=== PATIENT | female | born 2000 | race African-American/Black ===

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

== ENCOUNTER 2019-07-19 22:47 | Inpatient (IN) | payer OTHER ==
[2019-07-19 23:23] VITALS: BMI 31.7
[2019-07-20] LABS: Amnisure Test No Membranes Rupture (No Rupture)
[2019-07-20 00:01] LABS: Amnisure Internal Control QC ACCEPTABLE (ACCEPTABLE)
[2019-07-20 01:13] LABS: #Basophils 0.1 thou/uL (0.0-0.2); #Eosinphils 0.1 thou/uL (0.0-0.7); #Lymphocytes 3.4 thou/uL (1.20-3.40); #Monocytes 0.8 thou/uL (0.11-0.59); #Neutrophils 8.9 thou/uL (1.40-6.50); %Basophils 0.8 % (0.0-1.0); %Eosinophils 0.5 % (0.0-10.0); %Lymphocytes 25.8 % (28.0-48.0); %Monocytes 6.3 % (0.0-4.0); %Neutrophils 66.6 % (31.0-61.0); Hemoglobin 11.4 g/dL (12.0-16.0); Mean Corpuscular HGB CONC 34.1 g/dL (32.0-36.0); Mean Corpuscular Hemoglobin 28.3 pg (25.0-35.0); Mean Corpuscular Volume 82.9 fL (78.0-98.0); Mean Platelet Volume 8.7 fL (7.4-10.4); Platelet Count 242 thou/uL (130-400); RBC Distribution Width 12.7 % (11.5-14.5); Red Blood Cell (RBC) Count 4.02 mill/uL (4.00-5.20); White Blood Cell (WBC) Count 13.4 thou/uL (4.8-10.8)
[2019-07-20 01:25] LABS: Bilirubin Negative (Negative); Blood, Urine Negative (Negative); Clarity Turbid (Clear); Glucose, Urine (Dipstick) Normal (Negative); Leukocyte 500 Leu/uL (Negative); Nitrite 2+ (Negative); Protein, Urine (Dipstick) 10 mg/dL (Neg-Trace); Squamous Epithelial 0-3 HPF (0-3); Urobilinogen Normal mg/dL (Less than 2); WBC/HPF 21-50 HPF (0-3)
[2019-07-20 01:26] LABS: Bacteria/HPF 1+ HPF (None Seen)
[2019-07-20 01:33] LABS: ALT (SGPT) 7 U/L (8-55); AST (SGOT) 14 U/L (5-30); Albumin 3.3 g/dL (3.5-5.0); Alkaline Phosphatase 224 U/L (40-150); Anion Gap 11 mmol/L (10-20); BUN (Urea Nitrogen) 8 mg/dL (8.4-21.0); Bilirubin, Total 0.3 mg/dL (0.2-1.2); Calc. Creatinine Clearance 130 mL/min (70-130); Calcium 9.9 mg/dL (7.8-10.44); Carbon Dioxide 21 mmol/L (22-29); Chloride 107 mmol/L (98-107); Estimated GFR-MDRD Greater than 90; Globulin 3.7 g/dL (2.4-3.5); Glucose 80 mg/dL (70-105); Potassium 3.8 mmol/L (3.5-5.1); Sodium 135 mmol/L (136-145)
[2019-07-20 01:38] LABS: Creatinine, Urine 114.58 mg/dL (47-110)
[2019-07-20] MEDS ORDERED: Promethazine HCl 25 MG/ML VIAL IM PRN (02:42)
[2019-07-20] MEDS ORDERED: Lidocaine 1% (PF) 30 ML VIAL SC PRN (02:42)
[2019-07-20] MEDS ORDERED: NS / Oxytocin 40 units/1000ml 1,000 ML IV PRN (02:42)
[2019-07-20] MEDS ORDERED: hydrALAZINE 20 MG/ML VIAL SLOW IVP PRN (02:42)
[2019-07-20] MEDS ORDERED: Ibuprofen 800 MG TAB PO PRN (02:42)
[2019-07-20] MEDS ORDERED: Ondansetron PF 4 MG/2 ML Vial IVP PRN (02:42)
--- NOTE | 2019-07-20 02:57 | PDOC.LDHP ---
Labor and Delivery H&P Chief complaint: loss of fluid HPI: 18 yo BF presents c/o ?LOF this PM with associated UCs. Current gestational age (weeks): 39 Due date: 07/27/19 Dating criteria: last menstrual period Grav: 1 Para: 0 Current complications: none Abnormal US findings: No Current medications: pre-stefania vitamins Previous surgical history: none Allergies/Adverse Reactions: Allergies Allergy/AdvReac Type Severity Reaction Status Date / Time No Known Allergies Allergy Unverified 07/19/19 23:25 Social history: none - Physical Exam Abnormal vital signs: 154/98, 146/94 General: NAD Lungs: nonlabored breathing Abdomen: gravid Extremeties: trace edema FHT: category 1 [place] contractions every: irregular - Vaginal Exam cm dilated: 1 Effacement: 50% Station: -1 - OB Labs GBS: positive - Assessment L&D Assessment: medically indicated induction (BPs c/w gestational HTN, labs are WNL) - Plan Plan: admit to L&D (d/w Dr. Meehan- will proceed with induction), cervical ripening, labor augmentation if indicated, GBS antibiotic prophylaxis, informed consent obtained, anesthesia consult for pain management
[2019-07-20] MEDS ORDERED: Penicillin G Potassium 5 MILL.UNITS in Sodium Chloride 0.9% 100 ML IVPB SCH (03:00)
[2019-07-20 03:49] LABS: Hemoglobin 11.3 g/dL (12.0-16.0); Mean Corpuscular HGB CONC 34.4 g/dL (32.0-36.0); Mean Corpuscular Hemoglobin 28.8 pg (25.0-35.0); Mean Corpuscular Volume 83.9 fL (78.0-98.0); Mean Platelet Volume 9.7 fL (7.4-10.4); Platelet Count 229 thou/uL (130-400); RBC Distribution Width 12.9 % (11.5-14.5); Red Blood Cell (RBC) Count 3.91 mill/uL (4.00-5.20); White Blood Cell (WBC) Count 12.7 thou/uL (4.8-10.8)
[2019-07-20] MEDS: Lactated Ringer's 1,000 ML IV SCH ×2 (03:49→20:48)
[2019-07-20] MEDS: Misoprostol 100 MCG TAB VAG SCH ×3 (03:53→10:21)
[2019-07-20 04:33] LABS: HBSAg Index 0.13 S/CO (0-0.99); Hep B Surf Ag Non-Reactive S/CO (NonReactive)
[2019-07-20 05:01] LABS: Syphilis Antibody Nonreactive (Nonreactive); Syphilis Antibody Index 0.06 S/CO (<1.00 Non-Reactive)
[2019-07-20 05:48] LABS: Amphetamine Not Detected (NotDetected); Barbiturates Screen Not Detected (NotDetected); Benzodiazepine Screen Not Detected (NotDetected); Cocaine Metabolite Screen Not Detected (NotDetected); Medtox Reader # READER 1; Methadone Not Detected (NotDetected); Methamphetamine Not Detected (NotDetected); Opiate Screen Not Detected (NotDetected); Oxycodone Screen Not Detected (NotDetected); Phencyclidine (PCP) Not Detected (NotDetected); THC/Cannabinoid Screen Not Detected (NotDetected); Tricyclic Screen Not Detected (NotDetected)
[2019-07-20 05:49] LABS: Medtox Control Line Valid? VALID (VALID)
[2019-07-20] MEDS: Penicillin G 2.5 MILL.units 2.5 MILL.UNITS in Premix Bag 1 BAG IVPB SCH ×5 (07:02→20:49)
[2019-07-20] MEDS: Butorphanol Tartrate 1 MG/ML VIAL SLOW IVP PRN ×3 (11:17→20:06)
[2019-07-20] MEDS ORDERED: Lidocaine 2% PF 5 ML VIAL ONE (18:02)
[2019-07-20] MEDS ORDERED: Ondansetron PF 4 MG/2 ML Vial ONE (18:02)
[2019-07-20] MEDS ORDERED: Fentanyl 4 mcg/Bup 0.1% Cadd 100 ML ONE (20:28)
[2019-07-20] MEDS ORDERED: Lidocaine 1.5%/Epinephrine 1:200,000 5 ML AMPUL IJ ONE (20:29)
[2019-07-21] MEDS ORDERED: MORPHINE 5 MG/10 ML PF VIAL ONE (00:42)
[2019-07-21] MEDS ORDERED: Lidocaine 2% MPF 10 ML AMP (For Epidural Use) ONE (00:43)
[2019-07-21] MEDS ORDERED: Ondansetron PF 4 MG/2 ML Vial ONE (00:43)
[2019-07-21] MEDS ORDERED: Oxytocin 10 UNITS/ML VIAL ONE (00:43)
[2019-07-21] MEDS ORDERED: Ondansetron HCl/PF 4 MG/2 ML Vial IVP PRN (00:59)
[2019-07-21] MEDS ORDERED: Promethazine HCl 25 MG SUPP PR PRN (00:59)
[2019-07-21] MEDS ORDERED: diphenhydrAMINE 50 MG/ML VIAL IVP PRN (00:59)
[2019-07-21] MEDS ORDERED: Ondansetron PF 4 MG/2 ML Vial IVP PRN (00:59)
[2019-07-21] MEDS ORDERED: Naloxone HCl 0.4 mg/ml Vial IV PRN (00:59)
[2019-07-21] MEDS ORDERED: HYDROmorphone 2 MG/ML VIAL SLOW IVP PRN (00:59)
[2019-07-21] MEDS ORDERED: Ketorolac Tromethamine 30 MG/ML VIAL IVP PRN (00:59)
[2019-07-21] MEDS ORDERED: Meperidine HCl/PF 25 MG/ML VIAL SLOW IVP PRN (00:59)
[2019-07-21] MEDS ORDERED: Naloxone HCl 0.4 mg/ml Vial IVP PRN ×2 (00:59)
[2019-07-21] MEDS ORDERED: L&D-Morphine 4 MG/ML VIAL SLOW IVP PRN (00:59)
[2019-07-21] MEDS ORDERED: Promethazine HCl 25 MG/ML VIAL IM PRN (00:59)
[2019-07-21] MEDS ORDERED: Ketorolac Tromethamine 30 MG/ML VIAL IVP SCH (01:00)
[2019-07-21] MEDS ORDERED: Communication Order-Pharmacy FS SCH (01:00)
[2019-07-21] MEDS ORDERED: Lanolin Ointment 7 GM TUBE TOP PRN (01:56)
[2019-07-21] MEDS ORDERED: Bisacodyl 10 MG SUPP PR PRN (01:56)
[2019-07-21] MEDS ORDERED: Misoprostol 200 MCG TAB PR PRN (01:56)
[2019-07-21] MEDS ORDERED: hydrALAZINE 20 MG/ML VIAL SLOW IVP PRN (01:56)
[2019-07-21] MEDS ORDERED: Adacel (T-DAP) 0.5 ML SYRINGE IM ONE (01:56)
[2019-07-21] MEDS ORDERED: Zolpidem Tartrate 5 MG TAB PO PRN (01:56)
--- NOTE | 2019-07-21 01:59 | PDOC.OPDEL ---
OB Operative/Delivery Note Delivery Dr/Surgeon: Zoran Assist: Kiki Pre-Delivery Diagnosis: arrest of dilation, medically indicated induction, non- reassuring tracing Procedure/Post Delivery Dx: primary low transverse CS Weeks gestation: 39 Anesthesia: epidural - Findings A Sex: male Weight: 6 lb 15 oz - 1 min: 8 - 5 min: 8 - Additional Findings/Plan Placenta delivered: manual removal findings: low transverse hysterotomy without extension
[2019-07-21] MEDS: NS w/ Oxytocin 10 units 500 ML IV SCH ×3 (02:25→19:31)
[2019-07-21] MEDS: Misoprostol 100 MCG TAB VAG SCH ×5 (02:26→07:45)
[2019-07-21] MEDS ORDERED: Meperidine HCl/PF 25 MG/ML VIAL ONE (02:35)
--- NOTE | 2019-07-21 02:40 | OP ---
DATE OF PROCEDURE: 07/20/2019 The patient underwent a primary for non-reassuring heart tones and arrest of labor in the setting of PIH. For complete details, please refer to Dr. Suzanne Meehan's operative note. I functioned as first press operator. Job ID: [id number]
[2019-07-21] MEDS ORDERED: NIFEdipine XL 30 MG TAB PO SCH (04:45)
[2019-07-21] MEDS: Lactated Ringer's 1,000 ML IV SCH ×4 (04:46→19:30)
[2019-07-21] MEDS: Penicillin G 2.5 MILL.units 2.5 MILL.UNITS in Premix Bag 1 BAG IVPB SCH ×3 (04:48→07:45)
--- NOTE | 2019-07-21 05:37 | OP ---
DATE OF PROCEDURE: 07/21/2019 PREOPERATIVE DIAGNOSES: 1. 18-year-old female, G1, P0, at 39 plus weeks gestation. 2. Mild gestational hypertension, status post Pitocin induction. 3. Failure to progress past 3 cm. 4. Nonreassuring heart rate tracing right approximately 5 minutes prior to delivery. POSTOPERATIVE DIAGNOSES: 1. 18-year-old female, G1, P0, at 39 plus weeks gestation. 2. Mild gestational hypertension, status post Pitocin induction. 3. Failure to progress past 3 cm. 4. Nonreassuring heart rate tracing right approximately 5 minutes prior to delivery. PROCEDURES PERFORMED: Primary low-transverse section without extension. EVALUATOR TRANSFER STUDENTS SURGEON: Bennett Love MD. ANESTHESIA: Epidural. QUANTITATIVE BLOOD LOSS: 425 mL. FINDINGS: 1. Male infant, vertex presentation, weight 6 pounds 15 ounces, Apgars 8 and 8. 2. Normal-appearing fallopian tubes, uterus, ovaries. 3. Clear amniotic fluid noted. 4. Clear urine present in Arce catheter postprocedure. COUNTS: Lap, sponge counts were correct. DISPOSITION: Recovery room stable. DESCRIPTION OF PROCEDURE: The patient previously received informed consent in regard to surgery. She was taken back to the operating room emergently after the patient's heart rate tracing remained approximately in the 70s to 80s beats per minute after the patient had been lying on her back during the shaving process in her LDR room. Prior to this, heart rate tracing was reactive with occasional mild variable decelerations with good recovery. She was quickly placed on the table and anesthesia was at the bedside. Her epidural had been dosed adequately. She was prepped and then a Arce catheter was already in place. A Pfannenstiel incision was made in the abdomen and was quickly carried down to fascia. Fascia was nicked in midline. Fascial incision was extended bilaterally with curved Gage scissors. The rectus fascia was taken down superiorly and inferiorly and the rectus muscle bellies were divided in midline. Peritoneal cavity was entered. Bladder blade was placed. 2 cm hysterotomy incision was made above the vesicouterine peritoneal reflection and the baby was delivered in the vertex presentation. Mouth and nares were bulb suctioned on the abdomen. The cord was doubly clamped and cut and was handed to the pediatric team in attendance. Usual cord blood and ABG were obtained. Placenta was manually extracted. Uterus was externalized and was curetted of any remaining placental fragments, dry laparotomy sponge. Hysterotomy incision was closed with #1 Monocryl in a running locking fashion with good hemostasis confirmed. Uterus was then replaced back in the abdomen. The pelvis irrigated and suctioned. Hysterotomy incision again was noted to be hemostatic. Rectus muscle bellies were inspected and noted to be hemostatic prior to fascial closure. The fascia was closed with 0 PDS suture x2 in running continuous fashion. The subcutaneous tissue was irrigated, noted to be hemostatic prior to skin approximation with roni. The surgery was terminated. No anesthetic or surgical complications occurred. Job ID: [id number]
[2019-07-21] MEDS: Ferrous Sulfate 325 MG TAB PO SCH ×2 (07:45→18:16)
[2019-07-21] MEDS: Docusate Calcium (SURFAK) 240 MG CAP PO SCH ×2 (09:37→21:44)
[2019-07-21] MEDS: diphenhydrAMINE 25 MG CAP PO PRN ×2 (10:50→18:59)
[2019-07-21] MEDS ORDERED: Butorphanol Tartrate 1 MG/ML VIAL SLOW IVP PRN (13:00)
[2019-07-21] MEDS: Simethicone Chewable 80 MG TAB PO PRN (14:07)
[2019-07-21] MEDS: Prenatal Vitamin 1 TAB PO SCH (14:07)
[2019-07-21] MEDS: HYDROcodone/Acetaminophen 5/325 mg Tablet PO PRN ×2 (17:31→21:45)
[2019-07-21] MEDS: Ibuprofen 800 MG TAB PO SCH (21:45)
[2019-07-22] MEDS: HYDROcodone/Acetaminophen 5/325 mg Tablet PO PRN ×3 (03:54→18:10)
[2019-07-22] MEDS: Ibuprofen 800 MG TAB PO SCH ×3 (05:35→21:46)
[2019-07-22 06:53] LABS: Hemoglobin 9.7 g/dL (12.0-16.0); Mean Corpuscular HGB CONC 32.8 g/dL (32.0-36.0); Mean Corpuscular Volume 85.3 fL (78.0-98.0); Mean Platelet Volume 7.9 fL (7.4-10.4); Platelet Count 186 thou/uL (130-400); Red Blood Cell (RBC) Count 3.47 mill/uL (4.00-5.20); White Blood Cell (WBC) Count 17.9 thou/uL (4.8-10.8)
[2019-07-22] MEDS: Ferrous Sulfate 325 MG TAB PO SCH ×2 (09:47→18:11)
[2019-07-22] MEDS: Simethicone Chewable 80 MG TAB PO PRN ×2 (09:47→14:10)
[2019-07-22] MEDS: Docusate Calcium (SURFAK) 240 MG CAP PO SCH ×2 (09:47→21:46)
[2019-07-22] MEDS: Prenatal Vitamin 1 TAB PO SCH (09:47)
--- NOTE | 2019-07-22 12:29 | PDOC.PP ---
Post Progress Note Post Day #: 2 PO intake tolerated: yes Flatus: yes Ambulation: yes Vital Signs (12 hours) Temp Pulse Resp BP Pulse Ox 07/22/19 11:00 98.4 F 82 16 138/81 07/22/19 08:25 98.5 F 80 20 142/85 H 100 07/22/19 03:57 97.9 F 80 18 115/55 L 100 Weight Weight 185 lb Result Diagrams: 07/22/19 06:32 07/20/19 00:54 Additional Labs: Post Labs Blood Type O POSITIVE 07/20/19 04:42 Hep Bs Antigen Non-Reactive S/CO (NonReactive) 07/20/19 03:35 - Assessment/Plan Post op day 1-2. Blood pressures mild elevation...No severe readings. Plan to d/ c tomorrow.
[2019-07-22] MEDS: Lactated Ringer's 1,000 ML IV SCH ×2 (14:08→18:39)
[2019-07-23] MEDS: Lactated Ringer's 1,000 ML IV SCH ×4 (02:24→23:05)
[2019-07-23] MEDS: NS w/ Oxytocin 10 units 500 ML IV SCH (02:25)
[2019-07-23] MEDS: Ibuprofen 800 MG TAB PO SCH ×3 (05:10→21:49)
[2019-07-23] MEDS: HYDROcodone/Acetaminophen 5/325 mg Tablet PO PRN ×3 (05:15→19:05)
--- NOTE | 2019-07-23 08:40 | PDOC.PP ---
Post Progress Note Post Day #: 3 PO intake tolerated: yes Flatus: yes Ambulation: yes Vital Signs (12 hours) Temp Pulse Resp BP Pulse Ox 07/23/19 08:21 98.4 F 79 20 130/79 100 07/23/19 05:10 97.8 F 64 18 141/91 H 07/23/19 00:27 98.5 F 76 16 136/91 H Weight Weight 185 lb Result Diagrams: 07/22/19 06:32 07/20/19 00:54 Additional Labs: Post Labs Blood Type O POSITIVE 07/20/19 04:42 Hep Bs Antigen Non-Reactive S/CO (NonReactive) 07/20/19 03:35 - Assessment/Plan Post op day 3 from c/s. Blood pressures normalizing. Baby doing well. D/c home. follow up post op day 7 for staple removal and blood pressure check.
[2019-07-23] MEDS: Prenatal Vitamin 1 TAB PO SCH (09:11)
[2019-07-23] MEDS: Docusate Calcium (SURFAK) 240 MG CAP PO SCH ×2 (09:12→21:49)
[2019-07-23] MEDS: Ferrous Sulfate 325 MG TAB PO SCH ×2 (09:12→17:39)
--- NOTE | 2019-07-23 21:37 | PDOC.EVN ---
Event Note - Event Note Event Note: 2129: Called during another delivery that BP was 157/105 and then 177/87. Recheck 15 minutes later was 140/99 No sxs at this time. I sent Dr Dacosta to [facility] while I was in L&D We have debriefed. Follow BPs for now No meds at this time as may have been spurious
[2019-07-23] MEDS ORDERED: hydrALAZINE 20 MG/ML VIAL SLOW IVP PRN (22:17)
--- NOTE | 2019-07-23 22:19 | PDOC.EVN ---
Event Note - Event Note Event Note: Called by Dr Bhatt that BP was again 170s/90s. We will give IV hydralazine 10mg x 1 now, then transfer to L&D for MagSulfate. Check CBC, CMP
[2019-07-23] MEDS ORDERED: Sodium Chloride 0.9% 10 ML ONE ×2 (22:20→22:33)
[2019-07-23] MEDS ORDERED: hydrALAZINE 20 MG/ML VIAL SLOW IVP SCH (22:30)
[2019-07-23 22:41] LABS: #Basophils 0.1 thou/uL (0.0-0.2); #Eosinphils 0.2 thou/uL (0.0-0.7); #Lymphocytes 3.8 thou/uL (1.20-3.40); #Monocytes 0.8 thou/uL (0.11-0.59); #Neutrophils 9.6 thou/uL (1.40-6.50); %Basophils 0.6 % (0.0-1.0); %Eosinophils 1.6 % (0.0-10.0); %Lymphocytes 26.4 % (28.0-48.0); %Monocytes 5.5 % (0.0-4.0); %Neutrophils 65.9 % (31.0-61.0); Hemoglobin 10.2 g/dL (12.0-16.0); Mean Corpuscular HGB CONC 33.7 g/dL (32.0-36.0); Mean Corpuscular Hemoglobin 28.6 pg (25.0-35.0); Mean Corpuscular Volume 84.7 fL (78.0-98.0); Mean Platelet Volume 7.9 fL (7.4-10.4); Platelet Count 262 thou/uL (130-400); Red Blood Cell (RBC) Count 3.56 mill/uL (4.00-5.20); White Blood Cell (WBC) Count 14.5 thou/uL (4.8-10.8)
[2019-07-23] MEDS ORDERED: Magnesium Sulfate 20 gm/500 ml 20 GM/500 ML BAG ONE (22:51)
[2019-07-23 23:01] LABS: ALT (SGPT) 10 U/L (8-55); AST (SGOT) 17 U/L (5-30); Albumin 2.9 g/dL (3.5-5.0); Alkaline Phosphatase 160 U/L (40-150); Anion Gap 12 mmol/L (10-20); BUN (Urea Nitrogen) 9 mg/dL (8.4-21.0); Bilirubin, Total 0.2 mg/dL (0.2-1.2); Calc. Creatinine Clearance 154 mL/min (70-130); Calcium 8.9 mg/dL (7.8-10.44); Carbon Dioxide 23 mmol/L (22-29); Chloride 105 mmol/L (98-107); Estimated GFR-MDRD Greater than 90; Globulin 3.3 g/dL (2.4-3.5); Glucose 99 mg/dL (70-105); Potassium 3.9 mmol/L (3.5-5.1); Protein, Total 6.2 g/dL (6.0-8.3); Sodium 136 mmol/L (136-145)
[2019-07-24] MEDS: HYDROcodone/Acetaminophen 5/325 mg Tablet PO PRN (01:37)
[2019-07-24] MEDS ORDERED: Calcium Gluconate 4.6 MEQ, Admixture Fee 1 EACH in Sodium Chloride 0.9% 100 ML IVPB PRN (02:44)
[2019-07-24] MEDS ORDERED: Magnesium Sulfate 20 GM/WATER 500 ML BAG IVPB SCH (02:44)
--- NOTE | 2019-07-24 02:58 | PDOC.EVN ---
Event Note - Event Note Event Note: Notified by nursing staff that BP had started to increase to severe range. Most recent BP 161/97, pulse 116. Patient says she is feeling well. She notes feeling warm all over and a mild frontal headache. Good urine output. It appears patient's BP has elevated since grandmother has been visiting at hospital. Nursing staff notes possibly "Family drama" appears to be contributing to recent elevated BPs. Baby is under phototherapy in room and grandmother steps out of room and starts crying with concern for for baby's health. Will give IV labetalol 20 mg now and continue to monitor. BPs noted..will continue acute medical therapy.
[2019-07-24] MEDS ORDERED: Labetalol HCl 100 MG/20 ML VIAL SLOW IVP SCH (03:00)
[2019-07-24] MEDS: Ibuprofen 800 MG TAB PO SCH ×3 (06:14→22:47)
[2019-07-24] MEDS: Magnesium Sulfate 20 gm/500 ml 20 GM/500 ML BAG IVPB SCH ×2 (07:51→18:37)
--- NOTE | 2019-07-24 09:06 | PDOC.EVN ---
Event Note - Event Note Event Note: S: 18 yo s/p primary LTCS, POD 3, on magnesium since 2220 last night for severe range bp's. No complaints this am. O: VSS, bp wnl No increased work of breathing UOP wnl A/P: sIUP delivered PreE with severe range bp's -Continue magnesium -Continue to monitor bp's today -Likely dc mag tonight at 2200 -Continue to monitor bp's off magnesium Addendum - Attending - Attending Attestation Date/Time: 07/24/19 1037 I personally evaluated the patient and discussed the management with Dr. Lopez. Currently in L&D on Mg, BPs remain below severe range. Will cont. Mg x 24 hrs total. I agree with the History, Examination, Assessment and Plan documented above.
[2019-07-24] MEDS: Prenatal Vitamin 1 TAB PO SCH (09:43)
[2019-07-24] MEDS: Docusate Calcium (SURFAK) 240 MG CAP PO SCH ×2 (09:44→22:47)
[2019-07-24] MEDS: Ferrous Sulfate 325 MG TAB PO SCH (09:44)
[2019-07-24] MEDS: Lactated Ringer's 1,000 ML IV SCH (13:08)
--- NOTE | 2019-07-25 05:39 | PDOC.EVN ---
Event Note - Event Note Event Note: POD5 Resing comfortably. Mg stopped at 2230 last PM. No c/o this AM. BPs 140/80's VSS AF. Plan: Observe BP off Mg today.
[2019-07-25] MEDS: Docusate Calcium (SURFAK) 240 MG CAP PO SCH ×2 (11:26→21:35)
[2019-07-25] MEDS: Ibuprofen 800 MG TAB PO SCH ×3 (11:26→21:35)
[2019-07-25] MEDS: Ferrous Sulfate 325 MG TAB PO SCH (11:26)
[2019-07-25] MEDS: Prenatal Vitamin 1 TAB PO SCH (11:26)
[2019-07-25] MEDS: Lactated Ringer's 1,000 ML IV SCH (19:17)
[2019-07-26] MEDS: Ibuprofen 800 MG TAB PO SCH (05:35)
[2019-07-26 07:53] VITALS: BP 147/83; TEMP 98.3
--- NOTE | 2019-07-26 08:16 | PDOC.EVN ---
Event Note - Event Note Event Note: No PIH symptoms . Feels fine. O: 130-140's/80-90 incision is clean and dry. A/P: Post op day 6 from primary c/s with severe range spiked blood pressures on evening of post op day 3. Blood pressures remain below severe range. Will d/c home. Will give procardia 30 mg xl daily. follow up blood pressure check with staple removal in 48 hours.
[2019-07-26] MEDS ORDERED: NIFEdipine XL 30 MG TAB PO SCH (09:00)
[2019-07-26] MEDS: Prenatal Vitamin 1 TAB PO SCH (09:37)
[2019-07-26] MEDS: Docusate Calcium (SURFAK) 240 MG CAP PO SCH (09:37)
[2019-07-26] MEDS: Ferrous Sulfate 325 MG TAB PO SCH (09:38)
== END 2019-07-26 10:42 | disposition home or self-care (01) | DRG 788 ==
LOC: L&D/OP 22:47 → L&D 07-20 04:42 → 3SW 07-21 05:20 → L&D 07-23 22:37 → 3SE 07-25 14:36
PROVIDERS: ADMIT Obstetrics & Gynecology; ATTEND Obstetrics & Gynecology
PROC: 3E033VJ Introduction of Other Hormone into Peripheral Vein, Percutaneous Approach (ICD-10-PCS; principal; 2019-07-21)
PROC: 10D00Z1 Extraction of Products of Conception, Low, Open Approach (ICD-10-PCS; 2019-07-21)
PROC: 10907ZC Drainage of Amniotic Fluid, Therapeutic from Products of Conception, Via Natural or Artificial Opening (ICD-10-PCS; 2019-07-21)
DX: O13.4 Gestational [pregnancy-induced] hypertension without significant proteinuria, complicating childbirth (principal); O99.824 Streptococcus B carrier state complicating childbirth; O62.0 Primary inadequate contractions; O76 Abnormality in fetal heart rate and rhythm complicating labor and delivery; Z3A.39 39 weeks gestation of pregnancy; Z37.0 Single live birth
CPT/HCPCS: 36415; 51702; 80053; 80306; 81003; 81015; 82570; 82805; 84112; 84156; 85025; 85027; 86780; 86850; 86900; 86901; 87340; 87480; 87510; 87660; 88307; 99285; J0360; J0595; J1200; J1885; J2001; J2175; J2274; J2310; J2405; J2540; J2590; J3475; J3490; Q0163